=== PATIENT | female | born 1980 | race Caucasian/White ===

== ENCOUNTER 2016-07-05 13:48 | Outpatient (CLI) | payer OTHER ==
--- NOTE | 2016-07-06 07:31 | RAD ---
PA AND LATERAL VIEWS CHEST: HISTORY: Viral pharyngitis. FINDINGS: The cardiomediastinum is normal. The lungs are expanded and clear. The bony thorax is normal. IMPRESSION: Normal exam. POS: [facility]
== END 2016-07-05 13:49 | disposition home or self-care (01) ==
LOC: NAV RAD 13:48
PROVIDERS: ATTEND Family Medicine
DX: J02.9 Acute pharyngitis, unspecified (principal)
CPT/HCPCS: 71020

== ENCOUNTER 2020-04-10 06:40 | Emergency (ER) | payer OTHER, SELFPAY ==
[2020-04-10] MEDS ORDERED: Lidocaine 1% (PF) 30 ML VIAL ONE (07:12)
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
== END 2020-04-10 08:50 | disposition home or self-care (01) ==
LOC: NAV ERS 06:40
DX: S01.01XA Laceration without foreign body of scalp, initial encounter (principal); V43.53XA Car driver injured in collision with pick-up truck in traffic accident, initial encounter
CPT/HCPCS: 12001; 70450; J2001